=== PATIENT | female | born 1945 | race Caucasian/White ===

== ENCOUNTER 2016-10-03 19:54 | Emergency (ER) | payer MEDICARE, OTHER ==
[~2016-10-03] VITALS: Ht 160 cm; Wt 109.1 kg
[2016-10-03 20:09] VITALS: BP 160/88; PULSE 95; RESP 16; O2SAT 94
--- NOTE | 2016-10-03 21:08 | ED.REPORT ---
HPI-Extremity Problem Upper Date of Service October 03, 2016 ED Provider: Dr. Rowland Pt is a relatively healthy 71 y/o female w/ a hx of emphysema presenting to the ED with family due left shoulder pain secondary to mechanical ground level fall which occurred at 18:30 today. The patient fell in her driveway onto her left shoulder after stubbing her toe. She has had a wet-sounding cough for the past 3 weeks. She has not had to use her regular inhaler more often. Pt denies syncope, other sites of injury, fever, chills, nausea, vomiting, elbow pain, wrist pain, clavicular pain. NPO as of 18:00 today. Nursing Notes Stated Complaint: FELL Chief Complaint: Extremity Trauma Nursing Notes Reviewed: Yes Allergies: Coded Allergies: codeine (Verified Allergy, Severe, 10/03/16) Scheduled Prednisone (PredniSONE) 20 Mg Tablet 20 MG PO DAILY Scheduled PRN Naproxen (Naprosyn) 500 Mg Tablet 500 MG PO BID PRN PRN For Pain oxyCODONE-Acetaminophen 5-325 mg (oxyCODONE-Acetaminophen 5-325 mg) 1 Each Tablet 1-2 TAB PO Q6H PRN PRN For Pain General Time Seen by MD: 21:07 Chief Complaint Shoulder injury left Hx Obtained From: Patient Arrived By: Walk-in Onset Occurred: 1 - 4 hours ago Symptom Duration: Since onset Caused by: Accidental Location: : Shoulder left Quality: Painful Severity: Current: Moderate Severity: Maximum: Moderate Exacerbated by: Range of motion Similar Sx Previous: No Past Medical History Past Medical History Emphysema Past Surgical History None reported Smoking History Former Smoker Ambulatory Status Independent Review of Systems Constitutional: Denies: Chills, Fever Musculoskeletal: Reports: Extremity pain, Extremity swelling, Denies: Back pain, Neck pain Neurologic: Denies: Headache, Lightheaded, Syncope Complete sys rev & neg: except as marked. Respiratory: Reports: Non-productive cough, Denies: Shortness of breath Cardiovascular: Denies: Chest pain, Dyspnea on exertion GI: Denies: Abdominal pain, Diarrhea, Nausea, Vomiting Physical Exam Initial Vital Signs Vital Signs (First) Date Time Temp Pulse Resp B/P Pulse Ox O2 Delivery O2 Flow Rate FiO2 10/03/16 20:09 37.3 95 16 160/88 94 Room Air Initial VS: Reviewed, Vital signs abnormal Head / Eyes: Atraumatic, Normocephalic, PERRL ENT: Mucous membranes moist, Conjunctiva normal, No scleral icterus Cardiovascular: Intact distal pulses Abdomen / GI: Soft, Non-tender Lower Extremities: Vascular intact, Neuro intact, No swelling, No tenderness Skin: Warm, Dry, No cyanosis Neurologic: Alert, Oriented, Nonfocal Psychiatric: Mood/affect normal, Behavior normal, Normal thought content General/Constitutional: Awake, Alert, No acute distress, Cooperative, Not toxic appearing Appearance / Presentation: Positive: Uncomfortable Neck: Atraumatic, Supple, No meningismus, Full range of motion, No swelling, Non-tender, No midline vertebral tend Respiratory / Chest: Atraumatic, Breath sounds NL, Breath sounds = bilat, No respiratory distress, No rales, No rhonchi, No wheezing, No retractions, No stridor, No chest tenderness, No chest wall deformity, No crepitus No clavicular pain Upper Extremity / MS: Neurologic intact, Vascular intact Tender over left proximal humerus, Too tender to check shoulder ROM, No tenderness or deformity of elbow, wrist, or fingers Lower Extremity / Pelvis / MS: Atraumatic, Inspection NL, Full range of motion , Non-tender, No deformity, Neurologic intact, Vascular intact, Pelvis stable, Pelvis non-tender Interpretation & Diagnostics Interpretation & Diagnostics: CT left shoulder w/out contrast: Impression: Comminuted and distracted fracture involving the head and neck of the left humerus. Bony Bankart noted. Transmitted to the ED by Dc Vázquez MD at 23:05 Lab Results Interpretation Result Diagram: 10/03/16 2212 10/03/16 2212 Test 10/03/16 22:12 White Blood Count 12.8th/mm3 (3.8-10.1) Red Blood Count 4.48mil/mm3 (3.90-5.20) Hemoglobin 12.9g/dL (12.0-15.6) Hematocrit 41.9% (35.0-46.0) Mean Corpuscular Volume 93.5fL (81-100) Mean Corpuscular Hemoglobin 28.8pg (27.0-35.0) Mean Corpuscular Hemoglobin Concent 30.8% (32.0-37.0) Red Cell Distribution Width 14.5% (12.3-15.4) Platelet Count 262bil/L (150-400) Neutrophils (%) (Auto) 86.8% (40-74) Lymphocytes (%) (Auto) 7.5% (14-46) Monocytes (%) (Auto) 4.5% (4-12) Eosinophils (%) (Auto) 0.8% (0-5) Basophils (%) (Auto) 0.2% (0-3) Sodium Level 139mEq/L (134-144) Potassium Level 4.8mEq/L (3.5-5.2) Chloride Level 100mEq/L (97-108) Carbon Dioxide Level 27mmol/L (18-29) Blood Urea Nitrogen 25mg/dL (8-27) Creatinine 1.50mg/dL (0.57-1.00) Estimat Glomerular Filtration Rate 49mL/min (>59) Glucose Level 142mg/dL (60-99) Calcium Level 9.7mg/dL (8.5-10.1) Total Bilirubin 0.2mg/dL (0.0-1.2) Aspartate Amino Transf (AST/SGOT) 18U/L (0-50) Alanine Aminotransferase (ALT/SGPT) 15U/L (0-32) Alkaline Phosphatase 97U/L (25-165) Total Protein 7.7g/dL (6.4-8.4) Albumin 4.0g/dL (3.4-5.0) ECG Interpretation Time: 23:14 Interpreted by: ED physician Normal ECG Interpretation: Normal ECG w/ rate of... (94), Normal rate, Normal sinus rhythm, No acute ischemic changes, Normal QRS, Normal axis, Normal intervals, Adequate tracing X-Ray Chest Interpretation Chest Xray Interpretation: Parabronchial cuffing No hyperinflation Consistent with resolving bronchtis View: Portable, 1 view Interpretation / Wet Read by: Wet read ED physician X-Ray Interpretation Xray Interpretation: IMPRESSION: Comminuted fracture of the left humeral head and neck with displacement of the shaft medially 2 there is a thickness of the shaft. There is anterior angulation at the humeral neck fracture line. Dictated by: Deric Gonzales M.D. on 10/03/2016 at 22:05 Approved by: Deric Gonzales M.D. on 10/03/2016 at 22:06 Study Performed: 2 view X-Ray Ordered: Humerus left Interpretation / Wet Read by: Interpret - Radiologist Re-Eval/Medical Decision Med Decision/Clinical Course 71-year-old woman presents after mechanical fall where she landed on her left shoulder. No loss of consciousness no head or neck pain no pelvic or lower extremity pain. Her left arm is neurovascularly intact that she has significant tenderness at the proximal humerus. Incidentally notes that she has had a cough for the past 3 weeks in the setting of COPD but no smoking for the last 3 years. X-rays and CT scan confirmed severely comminuted angled proximal humerus fracture. Care is reviewed with Dr. Simental. Pain has been controlled adequately in the emergency department. She will be sent home with a sling and adequate continued oral pain control. Some attempts to gently manipulate her arm into a less angulated position were made for comfort. She is tolerating the sling nicely. We will need to call orthopedic office for definitive fracture care. COPD exacerbation with continued cough, suggest 5 days of prednisone along with continued inhalers that she has at home. No evidence for pneumonia or infection at this time no antibiotics indicated Labs were done in the emergency room as well as EKG and chest x-ray all in anticipation of surgery. Extremities all available to Dr. Villafana should surgery be required Re-Evaluation/Progress #1: Time of Eval: 22:00 Re-Evaluation/Progress Note: Pt rechecked. Pain improved. Informed pt of wet read of fracture and need for CT. She agrees with plan. Re-Evaluation/Progress #2: Time of Eval: 23:17 Re-Evaluation/Progress Note: Pt rechecked. Discussed imaging findings. A lengthy discussion was had with the patient and family. Informed pt of plan for treatment. Pt understands and agrees with plan for treatment. F/U instructions and RTER warnings given. All questions addressed. Consultation : Referral / Consult Name: Nick Simental MD Consulted With: Orthopedic Call Returned at: 23:15 Title Clerk: Agrees with eval, Agrees with plan Note: Recommends sling and home with pain control. Counseled Regarding: Diagnosis, Lab results, Need for follow-up, When/why to return to ED Discharge & Departure Impression: Primary Impression: Fracture of neck of left humerus Encounter type: initial encounter Fracture type: closed Qualified Code: S42.212A - Unspecified displaced fracture of surgical neck of left humerus, initial encounter for closed fracture Additional Impressions: Fall from ground level COPD exacerbation Fracture of head of left humerus Encounter type: initial encounter Fracture type: closed Qualified Code: S42.202A - Unspecified fracture of upper end of left humerus, initial encounter for closed fracture Disposition: Home Discharge Condition All VS Reviewed: Yes Condition: Stable Patient Instructions: Arm Fracture in Adults (ED), COPD (Chronic Obstructive Pulmonary Disease) (ED) Additional Instructions: The imaging showed a fracture of your upper left arm which may require surgery. The orthopedic surgeon will help you make this decision. Follow-up with the orthopedist tomorrow. Call tomorrow morning to set up an appointment. The referral number can be found below. Remain in the sling until you are seen by the orthopedist. Take Naprosyn each morning and night. Do not take Ibuprofen. Take 1-2 Percocet every 6 hours as needed for severe breakthrough pain. Do not drink alcohol or drive while taking Percocet. Take 1 Prednisone once each day for 5 days to improve your breathing. Take your first 2 Percocet at 3 AM tonight. Set an alarm. Use ice packs. Return to the emergency department for uncontrolled pain, significant numbness or weakness of your hand or fingers, or for other new or worsening symptoms. Referrals: Lula Singh MD (PCP) Nick Simental MD Attestation Portions of this note were transcribed by Naveed Allen. I, Dr. Rowland personally performed the history, physical exam and medical decision-making; I reviewed and confirmed the accuracy of the information in the transcribed note. Signed by Frankie Warner, 10/03/162129 copies to: Lula Singh MD; Nick Simental MD, Shawna L MD October 03, 2016 21:08 NAVEED ALLEN October 03, 2016 21:15
[2016-10-03] MEDS ORDERED: oxyCODONE-Acetamin 5-325 mg Tablet PO ONE (21:15)
[2016-10-03] MEDS ORDERED: predniSONE 20 mg Tablet PO ONE (21:20)
--- NOTE | 2016-10-03 22:08 | DRSVH ---
PROCEDURE: X-RAY LEFT HUMERUS, MINIMUM TWO VIEWS ([id number]) INDICATIONS: fall TECHNIQUE: 2 views of the humerus were acquired. COMPARISON: None. FINDINGS: Bones: There is an acute comminuted fracture of the left humeral neck and head. Prominent fragment in cluding the shaft is displaced medially. There is a thickness of the shaft with some anterior angulat ion. IMPRESSION: Comminuted fracture of the left humeral head and neck with displacement of the shaft medi ally 2 there is a thickness of the shaft. There is anterior angulation at the humeral neck fracture l ine. Dictated by: Deric Gonzales M.D. on 10/03/2016 at 22:05 Approved by: Deric Gonzales M.D. on 10/03/2016 at 22:06
[2016-10-03] MEDS ORDERED: HYDROmorphone 0.5 mg/0.5 mL iSecure Syringe IVPUSH PRN (22:15)
[2016-10-03] MEDS ORDERED: HYDROmorphone 1 mg/mL Inj IVPUSH ONE (22:15)
[2016-10-03 22:28] LABS: BASOPHILS % (AUTO) 0.2 % (0-3); EOSINOPHILS % (AUTO) 0.8 % (0-5); MONOCYTES % (AUTO) 4.5 % (4-12); Mean Corpuscular Hemoglobin 28.8 pg (27.0-35.0); Mean Corpuscular Volume 93.5 fL (81-100); NEUTROPHILS % (AUTO) 86.8 % (40-74); Platelet Count 262 bil/L (150-400)
[2016-10-03] MEDS ORDERED: PRE20 PO (23:35)
[2016-10-03] MEDS ORDERED: _oxyCODONE/APAP 5-325 mg Tablet PO PRN (23:35)
[2016-10-03] MEDS ORDERED: NAPR500T PO (23:35)
[2016-10-03] MEDS ORDERED: OXYC1TAB24 PO (23:35)
[2016-10-04 00:06] VITALS: BP 138/77; PULSE 98; RESP 18; O2SAT 94
--- NOTE | 2016-10-04 08:29 | DRSVH ---
PROCEDURE: CT SHOULDER LEFT W/O CONTRAST ([id number]) INDICATIONS: fracture TECHNIQUE: Noncontrast 1-1.5 mm thick sections acquired from the acromioclavicular joint to the inferior scapula , with coronal and sagittal reformatting. COMPARISON: [facility], CR, XR HUMERUS 2VW LT, 10/03/2016, 21:45. FINDINGS: Image quality: Excellent. Bones: There is a comminuted fracture of the left humeral head and neck. There is medial displacemen t of the femoral shaft component by approximately 1.3 cm and anterior displacement by approximately 0 .7 cm with mild impaction. Mild lateral angulation is also demonstrated by approximately 30 as well as mild posterior angulation of approximately 25. There is lateral displacement of the great tuber osity component by up to approximately 1 cm. 3 small linear cortical fracture fragments likely origi nating from the greater tuberosity are also impacted centrally in the humeral head by approximately 1 cm. The findings are compatible with a Neer 3 part fracture. The fractures involve the articular s urface of the humeral head inferiorly. There is also a mildly comminuted fracture of the inferior gl enoid. Soft tissues: There is mild periarticular soft tissue edema. Moderate centrilobular emphysematous ch anges are demonstrated within the visualized lungs. IMPRESSION: 1. Comminuted fracture of the left humeral head and neck consistent with a Neer 3 part fracture as d escribed. These include impacted greater tuberosity fragments as well as fracture along the articula r surface of the humeral head inferiorly. 2. Mildly comminuted fracture of the inferior glenoid. Dictated by: Kojo Rodriguez M.D. on 10/04/2016 at 8:17 Approved by: Kojo Rodriguez M.D. on 10/04/2016 at 8:27
--- NOTE | 2016-10-04 08:42 | DRSVH ---
PROCEDURE: X-RAY CHEST ONE VIEW, PORTABLE ([id number]) INDICATIONS: PRE-OP TECHNIQUE: One view of the chest was acquired. COMPARISON: [facility], CR, XR HUMERUS 2VW LT, 10/03/2016, 21:45. FINDINGS: Surgical changes and devices: None. Lungs and pleura: No pleural effusions or pneumothorax. Lungs are clear. Mediastinum: Mediastinal contours appear normal. Heart size is normal. Bones and chest wall: No suspicious bony lesions. Overlying soft tissues appear unremarkable. Parti ally visualized proximal left humerus fracture IMPRESSION: No acute disease Dictated by: Rodriguez Barajas M.D. on 10/04/2016 at 8:38 Approved by: Rodriguez Barajas M.D. on 10/04/2016 at 8:39
[2016-10-09] MEDS ORDERED: BUPR150T8 PO (10:00)
[2016-10-09] MEDS ORDERED: MULT-1018 PO (10:00)
[2016-10-09] MEDS ORDERED: CHOL200025 PO (10:00)
[2016-10-09] MEDS ORDERED: IPRA4AER IH (10:00)
[2016-10-09] MEDS ORDERED: ALPR0.254 PO (10:00)
== END 2016-10-03 23:57 | disposition home or self-care (01) ==
LOC: SED 19:54
DX: S42.212A Unspecified displaced fracture of surgical neck of left humerus, initial encounter for closed fracture (principal); S42.292A Other displaced fracture of upper end of left humerus, initial encounter for closed fracture; S42.142A Displaced fracture of glenoid cavity of scapula, left shoulder, initial encounter for closed fracture; W18.39XA Other fall on same level, initial encounter; Y93.89 Activity, other specified; Y92.89 Other specified places as the place of occurrence of the external cause; Y99.8 Other external cause status; J44.1 Chronic obstructive pulmonary disease with (acute) exacerbation; Z87.891 Personal history of nicotine dependence; Z88.5 Allergy status to narcotic agent
CPT/HCPCS: 36415; 71010; 73060; 73200; 80053; 85025; 93005; 96372; 96374; 99285; J1170; J1885

== ENCOUNTER 2016-10-10 12:22 | Inpatient (IN) | payer MEDICARE ==
--- NOTE | 2016-10-09 12:40 | PCM.ANEPRE ---
Anesthesia Pre-Op Review Reason for Review: elevated bmi, hx of emphysema office request Anesthesia Recommendations: Proceed with Procedure (Morbidly Obese with severe COPD, FEV1 of 0.84, FEV1/FVC 51 for total shoulder. Discussed with Dr Simental advises that patient is unlikely to receive shoulder block and increased likelyhood of post op intubation. ) Additional Comments Proceed with Procedure (Morbidly Obese with severe COPD, FEV1 of 0.84, FEV1/FVC 51 for total shoulder. Discussed with Dr Simental advises that patient is unlikely to receive shoulder block and increased likelyhood of post op intubation. Dr Simental states he will be efficient and use judicious lock for field block. patient should be advised on increased possiblity of post op intubation. Yonathan Shah MD Oct 09, 2016 12:40
[~2016-10-10] VITALS: Ht 165.1 cm; Wt 112.0 kg
[2016-10-10] MEDS: CeFAZolin Inj 2 GM in IV Premix 1 EACH IV SCH ×2 (06:00→13:57)
[2016-10-10] MEDS: Acetaminophen IV 1,000 MG in IV Premix 1 EACH IV SCH ×2 (06:00→13:35)
[~2016-10-10 12:22] MED LIST: ALPR0.254 PO; BUPR150T8 PO; Bupivacaine Liposome 1.3% 20 mL Inj INFILTRATE SCH; CHOL200025 PO; Gentamicin Inj 160 MG in Syringe 1 EACH IV ONE; IPRA4AER IH; Lactated Ringer's 1,000 ML IV SCH; MULT-1018 PO; NAPR500T PO; OXYC1TAB24 PO
[2016-10-10 12:45] VITALS: BP 158/60; PULSE 96; RESP 24; O2SAT 92
[2016-10-10] MEDS ORDERED: Lactated Ringer's 1,000 ML IV ONE (12:45)
[2016-10-10] MEDS ORDERED: MetoCLOpramide 5 mg/mL 2 mL Inj ONE (13:34)
[2016-10-10] MEDS ORDERED: HYDROmorphone 2 mg/mL Inj ONE (13:34)
[2016-10-10] MEDS ORDERED: Rocuronium 10 mg/mL 5 mL Inj ONE (13:34)
[2016-10-10] MEDS ORDERED: Phenylephrine/NS 100 mCg/mL 10 mL Syringe IVPUSH ONE (13:34)
[2016-10-10] MEDS ORDERED: Propofol 10,000 mCg/mL 20 mL Inj ONE (13:34)
[2016-10-10] MEDS ORDERED: fentaNYL-PF 50 mCg/mL 2 mL Inj ONE (13:34)
[2016-10-10] MEDS ORDERED: Lactated Ringer's 1,000 ML IV SCH ×2 (13:39→14:47)
[2016-10-10] MEDS ORDERED: Magnesium Hydroxide 10 mL Oral Concentration PO PRN (13:40)
[2016-10-10] MEDS ORDERED: diphenhydrAMINE 25 mg Capsule PO PRN (13:40)
[2016-10-10] MEDS ORDERED: Polyethylene Glycol (PEG) 17 Gm Powder PO PRN ×2 (13:40→17:35)
--- NOTE | 2016-10-10 14:14 | PCM.ORTHOP ---
Orthopedic Operative Report Date of Service: Oct 10, 2016 Pre Operative Diagnosis Left shoulder proximal humerus fracture, glenoid fracture Post Operative Diagnosis Same Procedure Left reverse total shoulder arthroplasty, open biceps tenodesis Surgeon Surgeon: Nick Simental MD Assistants: Alverto Chavis Indication for Procedure Left proximal humerus fracture, glenoid fracture Findings per dictation Details of Procedure [employer] reverse fracture system: CaP coated size 8 mm humeral stem, 36 neutral suture cup, small baseplate, small 36+3 humeral insert, 36mm Glenosphere, 6.5X20mm central screw, 4.75 x 36 mm locking screws, 4.75 x 36mm locking screw Anesthesia: general ETA Complications: none Estimated Blood Loss: 200 mL Findings: four part comminuted proximal humerus, head split in multiple comminuted pieces, inferior glenoid fracture Specimens: None Patient Status: Patient was extubated and taken to recovery room in stable condition. Indications: Myrna Chatman is a 71 year old right hand dominant s/p fall sustaining a comminuted left proximal humerus and glenoid fracture several days ago. The patient was offered conservative treatments versus surgical intervention given the severity of the injury and the patient opted for surgery. A clear explanation was given to the patient regarding the condition present, and the available conservative and surgical options. It was emphasized that the risks and benefits of surgery include but are not limited to infection , wound healing problems, damage to adjacent structures such as nerves, blood vessels and tendons, termite control service representative disability and pain, arthritis, hypersensitivity , deep vein thrombosis, pulmonary embolism, broken hardware, failure of surgery , need for further procedures at time of surgery or later, cast related problems , loss of limb or life. The patient was given an explanation and the patient voiced understanding of what to expect after the procedure or surgery, the limitations in activities of daily living, the likely duration for post operative recovery and the instructions that are to be followed. At the end the patient was invited to seek clarification or ask further questions but there were none. The patient voiced understanding of the entire consultation. Description of Procedure: Patient was taken to operating room and transferred to operating table in supine position. Time out was performed with both anesthesia and orthopaedics faculty present to confirm details of case to be performed. After time out performed, patient placed under general anesthesia and endotracheal tube secured into place. Once endotracheal tube secured, the patient was placed into the modified beach-chair position at about 40 degrees of flexion. Patient position was again checked to ensure all bony prominences adequately padded. The[default value] arm was prepped and draped in the usual sterile fashion to the level of the neck. A standard deltopectoral incision was made beginning immediately above the coracoid process and extending distally and laterally. The deltoid muscle was split through the interval being carefully not to release any deltoid along the clavicle or humerus. The proximal one-third of the pectoralis major muscle was incised off the humerus for better exposure. The supraspinatus and infraspinatus muscles were intact and still attached to the fractured greater tuberosity. The subscapularis was intact and also still attached to the fractured lesser tuberosity. It was incised through the tendinous portion just medial to the lesser tuberosity and tagged with 2-0 Fiberwire. The arm was externally rotated to expose the humeral head while the anterior humeral circumflex vessels ("3 sisters") were identified, ligated and then cut protecting the axillary nerve throughout inferior and medial to the vessels. The long head of the biceps was identified along the bicipital groove, incised at its origin and tagged for later tenodesis to the pectoralis major A pilot plant supervisor hole was then made with a 4 mm drill through the humeral head along the axis of the humeral shaft just lateral to the head's articular surface and just posterior to the bicipital groove. The 6 mm trochar pointed reamer was then inserted with continued circumferential reaming in 1 mm increments until light cortical contact was achieved with the 14mm reamer. The intramedullary resection guide was assembled and the version control sabiha was placed to allow for 30 degrees retroversion. We started broaching with the 8 mm broach and ended with the 8 mm broach which solidly fit in the canal and fully seated on the humerus. The broach cover was then used to protect the humerus while attention was turned to the glenoid. Any remaining labrum was removed from the glenoid along with surrounding osteophytes. The glenoid sizer was centered on the glenoid and a 3.2 mm Steinmann pin was inserted with a 10 degree inferior tilt with solid bone purchase. The glenoid was then reamed with the cannulated base plate reamer over the top of the Steinmann pin until a small bone shelf was evident circumferentially. The cannulated trial glenoid baseplate was placed and fully seated. The glenoid baseplate implant was impacted and fully seated. The 6.5 mm central screw was then inserted following removal of the Steinmann with good compression. The surrounding peripheral screws were then drilled with a 2.7 mm drill through the threaded locking guides and then placed. The glenosphere 36 mm trial was placed with good fit. The glenosphere implant was then tamped in place with appropriate offset. The standard humeral tray/bearing were placed and a trial reduction was performed. The patient achieved 80 degrees of external /internal rotation, 110 degrees of abduction, 45 degrees extension and 120 degrees of forward flexion with complete stability. The trail components were removed and the wound was copiously irrigated with normal saline with bacitracin. The mini stem was inserted followed by impaction of the humeral tray /bearing. The implant was reduced and once again range of motion was found to be 80 degrees of external/internal rotation, 110 degrees of abduction, 45 degrees extension and 120 degrees of forward flexion with complete stability. The wound was again irrigated. The humeral head was morselized and placed under the lugo of humeral head to improve bone stock and promote tuberosity healing. The tuberosities were repaired with #5 and #2 Fiberwire through previously made bone tunnels. The long head of biceps was tenodesed to the pectoralis major. The deltoid interval was closed with 0 vicryl followed by 2-0 vicryl subcutaneous closure and then monocryl stitches for the skin. Transexamic acid was given preop and prior to closure and a local anesthetic cocktail into the skin. Gentamicin was injected into the joint. Sterile dressings were applied along with a shoulder immobilizer and abduction pillow. The patient was then awoken from anesthesia and extubated, his neurovascular status was intact when checked in PACU. Pt tolerated procedure well and there was no complications. Nonweightbearing to affected upper extremity. Please leave sling on at all times. You may remove sling 3 times a day to move the elbow wrist and fingers. Do not move your shoulder. PROM only, IR to body, ER to 0 degrees, FF to 90 degrees, ABD to 0 degrees. Keep your arm at neutral, NO external rotation of the arm, no resisted IR of the arm. Please keep the affected extremity elevated when possible. You may use ice and/or heat as needed for comfort. Follow-up in 2 weeks with me with 2-view xrays and for suture removal and Steri -Strip application. Follow-up with me at 6 weeks. You will have pain medications , medication for constipation and aspirin 81 qdaily X 2 weeks. Grafts, Implants: Implants-See Implant Record Complications There were no periprocedural complications identified. Condition Stable Anesthetic Administered: GA Catheters: None Output, Estimated Blood Loss: 50 Blood Admin during surgery: No Surgical Cast or Splint: Shoulder Immobilizer Surgical Specimen Removed: No Specimen sent to Pathology: No copies to: Nick Simental MD, Christopher L MD Oct 10, 2016 14:14 Nick Simental MD Oct 10, 2016 14:14
[2016-10-10] MEDS ORDERED: 0.9% Sodium Chloride 100 ML ONE ×2 (14:28→14:29)
[2016-10-10] MEDS ORDERED: Tranexamic Acid 100 mg/mL 10 mL Inj ONE ×2 (14:28→14:29)
[2016-10-10] MEDS ORDERED: Lactated Ringer's 500 ML IV PRN (14:47)
[2016-10-10] MEDS ORDERED: Atropine 0.4 mg/mL Inj IVPUSH PRN (14:50)
[2016-10-10] MEDS ORDERED: fentaNYL-PF 50 mCg/mL 2 mL Inj IVPUSH PRN ×2 (14:50→17:20)
[2016-10-10] MEDS ORDERED: Phenylephrine 10,000 mCg/mL Inj IVPUSH PRN (14:50)
[2016-10-10] MEDS ORDERED: HYDROmorphone 1 mg/mL Inj IVPUSH PRN (14:50)
[2016-10-10] MEDS ORDERED: Labetalol 5 mg/mL 4 mL Inj IV PRN (14:50)
[2016-10-10] MEDS ORDERED: EPHEDrine Sulfate 50 mg/mL Inj IVPUSH PRN (14:50)
[2016-10-10] MEDS ORDERED: MetoCLOpramide 5 mg/mL 2 mL Inj IVPUSH PRN (14:50)
[2016-10-10] MEDS ORDERED: Ondansetron 2 mg/mL 2 mL Inj IVPUSH PRN ×2 (14:50→17:35)
[2016-10-10] MEDS ORDERED: Bupivacaine Liposome 1.3% 20 mL Inj INFILTRATE ONE (14:54)
[2016-10-10] MEDS ORDERED: Gentamicin 40 mg/mL 2 mL Inj INJ ONE (14:55)
--- NOTE | 2016-10-10 14:55 | PCM.HPANE ---
Patient Data Surgeon Admitting Provider: Attending Provider:Nick Simental MD Primary Care Physician:Lula Singh MD Other Provider:Aleah Israel Anesthesia Reason for Visit Left Proximal Humerus Fracture Ht/WT & BMI Height (Feet): 5 Height (Inches): 3 Weight (Kilograms): 110.77 Body Mass Index 43.00 Allergies Coded Allergies: codeine (Verified Allergy, Severe, nausea, 10/10/16) Past Anesthesia History Anesthesia History: Denies:: Abnormal Airway, Anesthesia Reactions, Difficult Intubation, Fam Anesthesia Reaction, Fam Malignant Hypertherm, Malignant Hyperthermia Diabetes History Hx Diabetes?: No (Hgb A1c 6.0 on 11/24/15) MRSA MRSA: No Medications Hypertension Medication: No Home Meds Incl Beta Amy: No Active Scripts oxyCODONE-Acetaminophen 5-325 mg 1 Each Tablet1-2 Tab PO Q6H PRN For Pain #30 TABLET Ref 0 Prov:Hazel Rowland MD 10/03/16 Naproxen (Naprosyn)500 Mg [id number] Mg PO BID PRN For Pain #60 TABLET Ref 0 Prov:Hazel Rowland MD 10/03/16 Reported Medications Bupropion ER (Wellbutrin SR)150 Mg Tablet.er150 Mg PO BID Ref 0 10/09/16 Cholecalciferol (Vitamin D3) (Vitamin D3)2,000 Unit Tablet2,000 Unit PO DAILY 10/09/16 Multivitamin (Multi Vitamin Daily)1 Each Tablet1 Each PO DAILY 30 Days Ref 0 10/09/16 Albuterol/Ipratropium (Combivent Respimat Inhal [place])120 Spr/4 Gm Inhaler1 Puff IH QID #1 INH Ref 0 10/09/16 Discontinued Reported Medications Alprazolam 0.25 Mg Tablet0.25 Mg PO DAILY PRN For Anxiety Ref 0 10/09/16 Discontinued Scripts Prednisone (PredniSONE)20 Mg [id number] Mg PO DAILY #5 TABLET Ref 0 Prov:Hazel Rowland MD 10/03/16 History History of ENT Problems?: Yes HEENT History: Positive for:: Sinus Problem (current cough with cold, small amt productive cough) Denies:: Abnormal Airway Cataracts Difficult Intubation Dysphagia Glaucoma Hearing Problem TMJ Denture Type: None Teeth Condition: Within Normal Limits Other HEENT Pertinent History: remote hx of corneal tear - last 10 years Hx of Heart Problems?: Yes Cardiovascular History: Denies:: AICD Abdominal Aortic Aneurism Atrial Fibrillation Cardiac Surgery Chest Pain Congestive Heart Failure Coronary Artery Disease Edema Heart Murmur Hypertension Irregular Heartbeat Pacemaker Peripheral Vascular Rheumatic Fever Thrombophlebitis Valvular Heart Disease Hx of Respiratory Problem?: Yes Respiratory History: Positive for:: COPD Cough Dyspnea Emphysema Use of Inhalers / NEBS Denies:: Asthma Chest Surgery Hemoptysis Oxygen Administration Pneumonia Pulmonary Embolism Tuberculosis Use of C-PAP Machine Hx Neurologic Problems?: No Neurological History: Denies:: Alzheimer's Disease CVA Dementia Dizziness Headaches Multiple Sclerosis Parkinson's Disease Peripheral Neuropathy Seizures TIA Hx of GI Problems?: Yes Gastrointestinal History: Denies:: Cirrhosis Diverticulitis Gall Bladder Disease Gastroesphageal Reflux Gastrointestinal Bleeding Heartburn Hepatitis Hiatal Hernia Liver Disease Rectal Bleeding Hx of Problems?: No Genitourinary History: Denies:: HX of Hemodialysis Kidney Stones Urinary Tract Infection HX of Peritoneal Dialysis: No Female Hx: Denies:: Currently Endometriosis Pelvic Inflammatory Problems with Breasts? Skin History: Positive for:: History Skin Disorders? (surface scrape from fall - elbow, leg ) Denies:: Pressure Ulcers Hx Musculoskeletal Problems?: Yes Musculoskeletal History: Positive for:: Musculoskeletal Trauma (left shoulder current admission problem) Denies:: Back Injury Degenerative Joint Fibromyalgia Joint Replacement Myasthenia Gravis Osteoarthritis Rheumatoid Arthritis Systemic Lupus Hx of Psycho/Social Problems?: Yes Psycho Social History: Positive for:: Anxiety (panic disorder) Denies:: Bipolar Disorder Hx Depression Suicide Attempt Hx Surgeries?: Yes (hand surgery in office, tonsils as child) Hx Any Other Health Problems?: Yes Other History: Denies:: Cancer Thyroid Disease (past hx of thyroiditis- 40+ years ago) History Blood Transfusions: Positive for:: Accept Blood Products? Denies:: Blood Transfusions Hx Diabetes: No (Hgb A1c 6.0 on 11/24/15) Hx Alcohol Use: YesAlcoholic Drinks Per Day: holidays only- rareHx Substance Use: No Smoking Status: Former Smoker Have You Smoked inLast 12 mo: No (quit tobacco 3 years ago- currently vapes rarely) Stop/Bang S-Snoring: Do You Snore Loudly: No T-Tired: feel tired, fatigued: No O-Obsered: Observed not breath: No P-Blood Pressure: treated: No B- Body Mass Index > 35 kg/m2: Yes A- Age over 50: Yes N- Neck Large Circumference: No G- Gender Male: No PATRICIO Total Score: 2 Risk Assessment Category Category 1A: Patient has history of documented sleep apnea, and HAS NOT received any narcotic, sedative or anesthesia administration during this stay. Category 1B: Patient has history of documented sleep apnea, and HAS received any narcotic , sedative or anesthesia administration during this stay Category 2: Patient has SUSPECTED Obstructive Sleep Apnea, and HAS received any narcotic , sedative or anesthesia administration during this stay. Category 3: Patient has SUSPECTED Obstructive Sleep Apnea and HAS NOT received narcotic, sedative or anesthesia administration during this stay. Category 4: Outpatient in Procedural Areas with known sleep apnea or who screen positive for High Risk via the STOP/BANG questionnaire. Exam Exam General Appearance: Alert, Oriented X3, Cooperative, No Acute Distress HEENT/AIRWAY: MP 2, Neck Movement (large neck circumference), Mouth Opening (3 FBMO) Lungs: Diminished, Coarse Heart: Exam Unremarkable, Regular Rate/Rhythm, No Murmurs/Rubs/Gallops Meds/Labs/Diagnostics Admission Meds Current Medications Lactated Ringer's (Lr) 1,000 ml @ ud STK-MED ONCE IV Last administered on t 12:45; Start 10/10/16 at 12:45; Stop 10/10/16 at 13:12; Status DC Plan Impression Patient chart reviewed, patient interviewed and anesthestic plan with risks, benefits, and alternatives discussed, and informed consent obtained. NPO per Anesth. Guidelines: Yes ASA Physical Status: ASA3 Severe Disease (COPD) Anesthetic Support Modalities: [place] Scope Anesthetic Plan: GA Bene/Risks/Altern/Consents: Yes HP Complete Prior to Induction: Yes Other SOB with exertion. I spent a long time preoperatively with the patient and her family discussing anesthesia risks. The primary risk has to do with her COPD and pulmonary status. She gets SOB with exertion and has a low room air saturation. I reported that there was a high chance Ms. Chatman would need to remain intubation postoperatively and go to the ICU on a ventilator. She also has a significant risks of developing pneumonia/atelectasis. This was in addition to all of the other standard GETA risks mentioned on the consent. All questions were answered and Ms. Chatman and her family still wanted to proceed with surgery despite the risks. She is also aware that this is a painful surgery and despite good pain medication management she will still likely have significant postoperative pain. Consent signed. Jayson Ingram MD Oct 10, 2016 13:18
[2016-10-10 17:10] VITALS: BP 112/92; O2SAT 99
[2016-10-10] MEDS ORDERED: fentaNYL 2,500 mCg/250 mL 2,500 MCG in IV Premix 1 EACH IV PRN (17:16)
[2016-10-10] MEDS ORDERED: Propofol Inj 1,000,000 MCG in IV Premix 1 EACH IV SCH (17:16)
[2016-10-10] MEDS ORDERED: Propofol 10,000 mCg/mL 100 mL Inj ONE (17:21)
--- NOTE | 2016-10-10 17:25 | PCM.ANEP1 ---
Post Anesthesia PACU Phase 1 Assessment Vital Signs Vital Signs Date Time Temp Pulse Resp B/P Pulse Ox O2 Delivery O2 Flow Rate FiO2 10/10/16 12:45 36.4 96 24 158/60 92 Room Air Anesthetic Administered: GA Level of Alertness: Drowsy, not talking [place]'s with Equal Strength: Yes Pain: No Nausea or Vomiting: No CV Function & Hydration Stable: No Airway Device: Endotrachial Tube Oxygen Delivery: Mechanical Ventilator Lungs: Diminished, Coarse Dermatome Level: Full Sensation PACU Phase 2 Assessment Complications: No Follow up Care: Yes Patient Instructions Provided: N/A Jayson Ingram MD Oct 10, 2016 17:25
[2016-10-10] MEDS ORDERED: Albuterol 2.5 mg/3 mL Inhalation Solution NEB PRN (17:30)
[2016-10-10] MEDS ORDERED: cefTRIAXone Inj 1,000 MG in Dextrose 5% Minibag Plus 50 ML IV SCH (17:30)
[2016-10-10] MEDS: Lactated Ringer's 1,000 ML IV SCH ×2 (17:34→21:14)
[2016-10-10] MEDS ORDERED: Senna-Docusate 8.6-50 mg Tablet PO PRN (17:35)
[2016-10-10] MEDS ORDERED: Alum-Mag Hydrox-Simeth 30 mL Suspension PO PRN (17:35)
[2016-10-10 17:45] VITALS: BP 133/61; PULSE 108; RESP 18; O2SAT 96
--- NOTE | 2016-10-10 18:45 | NUR ---
to CCU 2015 direct from O.R. Temp Ax 37.0/HR 106/Bp 133/61. Pt intubated/awake/thrashing head about/trying to sit up in bed. Peripheral rt thumb IV not infusing on arrival. No street; bed saturated with urine underneath pt. Sedation started IVP Dilaudid 1mg-> IV Propofol gtt, Fentanyl gtt to be started beto. Second PIV started per IVT. Several attempts at Labs; ongoing. Dr. Miller Restaurant Kitchen Manager notified of pt arrival by Anesth; orders pending. Street cath placed. minimal UOP->MD notified. Orders for IVF LR @ 75/hr. UA sent. Sputum specimen sent. Labs sent. Notified by Rubi RN that pt's admit & med rec completed per Day Surgery.
--- NOTE | 2016-10-10 18:46 | ABG ---
DateTimeAnalyzed 18:40:00 -_ pH ____7.314 - 7.350 7.450 pCO2 ___57.0__ -mmHg 35.0 45.0 pO2 148 -mmHg 69.0 116 HCO3- ___28.1__ -mmol/L 22.0 26.0 ABE ____1.6__ -mmol/L -2.0 2.0 tHb ___10.6__ -g/dL O2Hb ___96.3__ -% COHb ____1.2__ -% MetHb ____1.3__ -% sO2 ___98.8__ -% FIO2 ___50.0__ -% PRVC 12 - PEEP ____5.0__ -cmH2O Vt __500.0__ -L Drawn By gj - Date/Time Notified____ 18:46:00 -_ Spontaneous_RR ___12.0__ -b/min Oxygen Device 1 VENTILATOR - Notified By gj - Notified Whom ___DR. MONTOYA - B 749 -mmHg tO2 ___14.6__ -Vol% Cheng test _Positive -
[2016-10-10] MEDS ORDERED: Ketorolac 15 mg/mL Inj IVPUSH PRN (19:00)
--- NOTE | 2016-10-10 19:13 | DRSVH ---
PROCEDURE: X-RAY CHEST ONE VIEW, PORTABLE ([id number]) INDICATIONS: Post intubation to verify ETT placement TECHNIQUE: One view of the chest was acquired. COMPARISON: None. FINDINGS: Surgical changes and devices: ET tube is approximately 4.9 cm superior to the rocio. NG tube cross es GE junction. Lungs and pleura: No pleural effusions or pneumothorax. Lungs are clear. Mediastinum: Mediastinal contours appear normal. Heart size is normal. Bones and chest wall: No suspicious bony lesions. Overlying soft tissues appear unremarkable. IMPRESSION: ET tube 4.9 cm superior to the rocio. Dictated by: Edie Campbell MD, PhD on 10/10/2016 at 19:10 Approved by: Edie Campbell MD, PhD on 10/10/2016 at 19:11
--- NOTE | 2016-10-10 19:13 | DRSVH ---
PROCEDURE: X-RAY LEFT SHOULDER, MINIMUM TWO VIEWS ([id number]) INDICATIONS: POST OPERATIVE TECHNIQUE: 2 views of the shoulder were acquired. COMPARISON: None. FINDINGS: Bones: Postsurgical changes compatible with left shoulder arthroplasty noted.. Soft tissues: No suspicious soft tissue calcifications. IMPRESSION: Status post left shoulder arthroplasty. Dictated by: Edie Campbell MD, PhD on 10/10/2016 at 19:11 Approved by: Edie Campbell MD, PhD on 10/10/2016 at 19:12
--- NOTE | 2016-10-10 19:35 | NUR ---
Dr. Simental notified of pt's low UOP Plan per Dr. Simental is to request night Hospitalist consult. Pager number provided.
--- NOTE | 2016-10-10 19:51 | NUR ---
Sedation reduced per MD; PST->extubation by [address] Miller managing @ bedside. Family with pt/updated frequently. Bedside & verbal report to shift stacker RN.
--- NOTE | 2016-10-10 19:53 | PCM.PNMED ---
Subjective Date of Service Oct 10, 2016 Subjective 71 yo with COPD and Lt humeral neck fx after ground level fall was admitted to CCU on ventilation s/p Lt shoulder total arthroplasty. SEE FULL DICTATION FOR DETAILS She has tolerated gradual Pressure support wean on CPAP/PSV mode and has now been extubated @ 1945 hours.. Alert and comfortable. Denies pain, nausea, dyspnea. Good voice quality. SpO2 96% on 3 L NC O2. Lungs Decreased breath sounds with scattered crackles, NO wheezes IMP Post-op respiratory failure, resolved. Now stable on low flow nasal cannula oxygen COPD with acute exacerbation REC Steroids, Ceftriaxone, Duoneb Sputum for culture Pain control with bolus dilaudid ICU prophylaxis Mobilize Further care by admitting surgeon and hospitalist service Exam Vital Signs Vital Sign - Last Date Time Temp Pulse Resp B/P Pulse Ox O2 Delivery O2 Flow Rate FiO2 10/10/16 17:25 Mechanical Ventilator 10/10/16 17:10 94 112/92 99 50 10/10/16 12:45 36.4 24 Lab and Diagnostics Result Diagram: 10/10/16 1850 Pa Miller MD Oct 10, 2016 19:53
[2016-10-10 19:55] LABS: APPEARANCE,URINE SLIGHTLY CLOUDY (CLEAR,HAZY); COLOR,URINE YELLOW (YELLOW); OCCULT BLOOD,URINE NEGATIVE (NEGATIVE); UROBILINOGEN,URINE NORMAL (NORMAL)
--- NOTE | 2016-10-10 20:16 | PCM.HPMED ---
Subjective Date of Service Oct 10, 2016 Primary Provider: Admitting Physician: Nick Simental MD Primary Care Physician: Lula Singh MD Attending Physician: Nick Simental MD Chief Complaint: s/p total shoulder, arrival intubated post operation, consulted by orthoDr. Simental History of Present Illness: 71yoF with past history of tobacco dependence and undiagnosed COPD admitted for left total shoulder arthroplasty with subsequent admission to the CCU d/t concerns of respiratory status following procedure. Family is at bedside and assists with history. Patient states that last week she was in her driveway exiting her golf cart with her daughter. Her dog took off running up the highway and her daughter accidentally hit the gas pedal reaching for the dog which released the golf cart brakes and the cart began to roll. Mrs. Chatman reached for the cart and fell backwards down the steep driveway and began to roll down. She was brought into the ER and was found to have a left humerus fracture. At this time she was also given a prednisone burst due to concern for COPD exacerbation. 10/10 she was brought into the hospital for a left total arthroplasty however following procedure she was brought to the CCU intubated. Anesthesia had concerns about her respiratory status given her history of COPD and preferred to have her remain intubated overnight. Pulmonary/critical care physician was available upon patient's arrival to the CCU and patient was successfully extubated at this time. Review of Systems: Complete review of systems obtained. Positive as per HPI otherwise negative Allergies Coded Allergies: codeine (Verified Allergy, Severe, nausea, 10/10/16) Home Medications Alprazolam ASA Ipratropium Melatonin Multivitamin Vitamin D3 Wellbutrin PMH Osteopenia Screening for colon cancer HLD Impaired fasting glucose Abdominal pain Anxiety state Tobacco use Surgical History Tendon release [place] Teeth Extraction Tonsillectomy Family History Father: CHF, history of malaria Mother: " of old age" Social History Hx Alcohol Use: Yes Alcoholic Drinks Per Day: holidays only- rare Hx Substance Use: No Hx Tobacco Use: No Smoking Status: Former Smoker (2ppd "forever", quit 2 years ago still vapes but without tobacco) Living Arrangement: with Family Exam Vital Signs Vital Sign - Last Date Time Temp Pulse Resp B/P Pulse Ox O2 Delivery O2 Flow Rate FiO2 10/10/16 17:45 37.0 108 18 133/61 96 Mechanical Ventilator 40 Exam General: Alert, Oriented X3, Cooperative, No acute Distress Eyes: PERRLA, Scleral Anicteric Mouth: Mouth Normal, Mucous Membranes Moist/[place] Neck: Supple, no Thyromegaly, trachea central. Chest & Lungs: Clear to auscultation & percussion, No adventitious breath sounds, no crackles, no wheeze, anterior exam, poor respiratory effort Cardiovascular: Normal S1, Normal S2, No Murmurs/Rubs/Gallops, tachy/ reg Rhythm Pulses: Radial (present and equal), Dorsalis Pedi (present and equal) GI: Soft, Non-tender, Non-distended, Normoactive bowel tones. Musculoskeletal: left arm in sling, dressings CDI Extremities: 1-2 + pitting edema bilateral, no cyanosis, no clubbing. Skin: No rashes. Warm and dry, no erythematous areas Neurological: Grossly neurologically intact, Normal Speech, Sensation Intact Lymphatic: Lymph nodes Cervical and Axillary not palpable Lab and Diagnostics Result Diagram: 10/10/16 1850 X-Rays, CTs and MRIs Patient Name: KIMBERLY CHATMAN MR#: [id number] Location: CCU Ordering Phys: Alverto Chavis PA-C Date of Service: 10/10/16 1339 PROCEDURE: X-RAY LEFT SHOULDER, MINIMUM TWO VIEWS ([id number]) INDICATIONS: POST OPERATIVE TECHNIQUE: 2 views of the shoulder were acquired. COMPARISON: None. FINDINGS: Bones: Postsurgical changes compatible with left shoulder arthroplasty noted.. Soft tissues: No suspicious soft tissue calcifications. IMPRESSION: Status post left shoulder arthroplasty. Dictated by: Edie Campbell MD, PhD on 10/10/2016 at 19:11 Approved by: Edie Campbell MD, PhD on 10/10/2016 at 19:12 Patient Name: KIMBERLY CHATMAN MR#: [id number] Location: CCU Ordering Phys: Pa Miller MD Date of Service: 10/10/16 1716 PROCEDURE: X-RAY CHEST ONE VIEW, PORTABLE ([id number]) INDICATIONS: Post intubation to verify ETT placement TECHNIQUE: One view of the chest was acquired. COMPARISON: None. FINDINGS: Surgical changes and devices: ET tube is approximately 4.9 cm superior to the rocio. NG tube crosses GE junction. Lungs and pleura: No pleural effusions or pneumothorax. Lungs are clear. Mediastinum: Mediastinal contours appear normal. Heart size is normal. Bones and chest wall: No suspicious bony lesions. Overlying soft tissues appear unremarkable. IMPRESSION: ET tube 4.9 cm superior to the rocio. Dictated by: Edie Campbell MD, PhD on 10/10/2016 at 19:10 Approved by: Edie Campbell MD, PhD on 10/10/2016 at 19:[address] (left) Comminuted fracture of the left humeral head and neck consistent with a Neer 3 part fracture as described. These include impacted greater tuberosity fragments as well as fracture along the articular surface of the humeral head inferiorly. Mildly comminuted fracture of the inferior glenoid. 12-lead ECG Reviewed on consultation. Sinus, HR 90, QTc 460, no ischemic change. Assessment & Plan 71yoF with past history of tobacco dependence and undiagnosed COPD admitted for left total shoulder arthroplasty with subsequent admission to the CCU d/t concerns for extubation given history. Patient was extubated post admission and is doing well. Left total arthroplasty, acute -post op day 0 -patient is doing well at this time -recs and management as per ortho COPD exacerbation, acute, POA -patient is without formal diagnosis of COPD however had pulm function tests one year ago -no history of COPD exacerbations -was given prednisone burst during ED visit after GLF but developed worsening sputum production -albuterol-ipratropium q6HR, albuterol PRN -continue methylprednisone at this time -continue ceftriaxone Elevated glucose, acute, POA -no history of diabetes -hgbA1c pending Leukocytosis, acute, POA -acute stress rxn 2/2 surgery -continue abx as above for COPD exacerbation Elevated creatinine, unknown chronicity, POA -patient with unknown baseline but likely CKD given EMR review Patient is admitted under inpatient status and will likely require >2 midnight hospitalization due to severity of illness. Pain Evaluation: Adequate Pain Control GI Prophylaxis: Not indicated VTE Prophylaxis: Other (DVT prophylaxis as per orthopedic surgery) Resuscitation Status: CPR: Attempt Resuscitation Amanda Foy DO Oct 10, 2016 20:16
[2016-10-10 20:27] LABS: BASOPHILS % (AUTO) 0.2 % (0-3); EOSINOPHILS % (AUTO) 1.2 % (0-5); MONOCYTES % (AUTO) 6.6 % (4-12); Mean Corpuscular Hemoglobin 28.5 pg (27.0-35.0); NEUTROPHILS % (AUTO) 79.2 % (40-74); Platelet Count 298 bil/L (150-400)
[2016-10-10 20:30] VITALS: BP 145/86; PULSE 104; RESP 15; O2SAT 95
[2016-10-10] MEDS ORDERED: MethylprednisoLONE Sodium Succinate 40 mg/mL Inj IVPUSH SCH (20:30)
[2016-10-10] MEDS: Senna-Docusate 8.6-50 mg Tablet PO SCH (20:30)
[2016-10-10] MEDS ORDERED: Chlorhexidine 0.12% 15 mL Oral Solution MT SCH (20:30)
[2016-10-10] MEDS: Albuterol-Ipratropium 3 mL Inhalation Solution NEB SCH (20:35)
[2016-10-10 20:38] VITALS: PULSE 102; RESP 13; O2SAT 96
[2016-10-10] MEDS: Heparin 5,000 Unit/mL Inj SUBQ SCH (21:11)
[2016-10-10] MEDS ORDERED: CeFAZolin Inj 2 GM in IV Premix 1 EACH IV SCH (22:00)
--- NOTE | 2016-10-10 23:01 | CONS ---
[address] [address] CONSULTATION REPORT PATIENT: KIMBERLY RAMIREZ : 1945 MR#: [id number] ADMIT: 10/10/2016 JOB ID: [id number] DATE OF SERVICE: 10/10/2016 REQUESTING CLINICIAN: Nick Simental MD, Orthopedic Surgery. REASON FOR CONSULTATION: Postoperative respiratory failure. HISTORY OF PRESENT ILLNESS: The patient is a morbidly obese 71-year-old smoker with advanced COPD who sustained a ground level fall approximately one week ago at her home. She was seen in our emergency department where a comminuted angulated fracture of the left humeral neck was seen. She has been managed conservatively since that time and brought to the hospital electively today for surgical repair. She has arrived in the Critical Care Unit within the last 30 minutes, intubated following a rather lengthy surgery of approximately 2-1/2 hours length for the total shoulder arthroplasty that she ultimately required. Estimated blood loss was approximately 400 cc and total crystalloid delivered during the case was approximately 2 L. I do not have access to the full anesthesia records so I cannot see whether she received any bolus vasoactive agents, such as phenylephrine, during the case. Reportedly, she was rather easy to oxygenate and ventilate throughout the case. She has a history of advanced COPD with an FEV1 of less than 1 L. Baseline blood gases are not available. She had not been prescribed supplemental home O2 oxygen previously, but when seen in the emergency department following her fall she was felt to be in an acute exacerbation of her chronic lung disease and was started on a steroid burst. Antibiotics were not provided. She continued to use her p.r.n. albuterol/ipratropium metered-dose inhaler. No information is available from the patient herself who is currently intubated and sedated. No family members are present. Information is obtained by review of the record and discussion with her anesthesiologist, who was very kind to remain after the case and convey what he knew of her past and recent course. PAST MEDICAL HISTORY: 1. COPD. 2. Anxiety. 3. Morbid obesity. OUTPATIENT MEDICATIONS: Include: 1. Oxycodone/acetaminophen p.r.n. 2. Naprosyn p.r.n. 3. Bupropion ER 150 p.o. b.i.d. 4. Cholecalciferol 2000 units daily. 5. MVI daily. 6. Combivent Respimat q.i.d. and p.r.n. 7. Alprazolam 0.25 mg daily p.r.n. 8. Prednisone 20 mg p.o. daily, prescribed October 03, 2016. DRUG ALLERGIES: CODEINE causes gastrointestinal distress, nausea, vomiting. FAMILY HISTORY: Not obtainable as patient is intubated and sedated. SOCIAL HISTORY: Not obtainable as patient is intubated and sedated. REVIEW OF SYSTEMS: Not obtainable as patient is intubated and sedated. PHYSICAL EXAMINATION: This is a morbidly obese woman who is orally intubated on mechanical ventilation. Her blood pressure is 150/70. Her heart rate is 75 and regular. Respirations are 14 on a ventilator rate of 12 and her O2 saturation is 100% on FiO2 of 0.5 and 5 of PEEP. HEENT exam: Gaze appears conjugate. Conjunctivae noninjected. Sclerae anicteric. Pupils appear equal. Visible oral mucosa is moist. There is no obvious trauma, ulcerations or exudate. Trachea is midline to inspection and palpation. There is no crepitus, mass or adenopathy in the neck. The thyroid is nonpalpable. The chest shows symmetric expansion to inspection. The breasts are quite large. There is no crepitus in the chest wall. On auscultation she has decreased air movement in all lung coello with scattered rare coarse crackles. No wheezing is heard. Cardiac exam shows a regularly regular rhythm with normal S1 and S2. No murmur, gallop or rub is heard. PMI is nondisplaced. Extremities: She has a large dressing over left shoulder and left arm is in a fixation splint stabilized to the chest wall. Abdomen: Soft, nontender. Bowel tones are absent. There is no organomegaly, mass or bruit. Skin: She has a single peripheral IV in the right wrist. Neurologic: Patient is sedated. Unable to participate in exam. DATABASE: Per the electronic medical record. Her last available chest x-ray is dated October 03 and showed no acute cardiopulmonary disease. Laboratories from this admission are all pending currently. IMPRESSION: Postoperative respiratory failure. From the history it appears that she was having an acute exacerbation of her chronic obstructive pulmonary disease and then sustained a humeral fracture after a ground level fall. Surgery went well today, but in anticipation of some difficulty with liberation from ventilation she was brought to the Critical Care Unit without an attempt at extubation being made in the operating room or recovery areas. Once our assessment is completed in CCU and we have good pain control, we can try awakening and spontaneous breathing trial. The tracheal aspirate at this point looks quite purulent and has been sent for culture and we will start empiric antibiotics while continuing her inhaled bronchodilators and steroids, although the latter will need to be given parenterally at this point until she can take oral medications. In summary, this morbidly obese woman with advanced chronic lung disease has been admitted to the Critical Care Unit this evening following elective total shoulder following a ground level fall. She has had a recent exacerbation of her chronic lung disease, but on exam and by inspection of her ventilator waveforms does not appear to have significant bronchospasm at present and I am hopeful that we can extubate her within the next 24 hours. RECOMMEND/PLAN: 1. Solu-Medrol 40 IV q.12 h. 2. Scheduled and p.r.n. albuterol/ipratropium by small volume nebulizer. 3. Endotracheal aspirate for culture and empiric ceftriaxone 1 g IV daily 24. 4. Complete admission database with chemistries, CBC, EKG, chest x-ray and blood gas. 5. Routine Intensive Care Unit prophylaxis with parenteral H2 pete q.12 and subcutaneous heparin 5000 units q.12. 6. Continuous sedation with propofol and pain control with bolus and continuous infusion fentanyl. 7. Early awakening and spontaneous breathing trial once admission assessment complete and pain is controlled. Thank for requesting Pulmonary Critical Care consultation. We will continue to follow with you while she remains intubated in the postoperative period. EVIE
[2016-10-10] MEDS: HYDROmorphone 0.5 mg/0.5 mL iSecure Syringe IVPUSH PRN (23:42)
[2016-10-11] VITALS (9 sets, daily range): BP systolic 130–144; BP diastolic 54–84; PULSE 102–130; RESP 12–22; O2SAT 85–99
[2016-10-11] MEDS: Albuterol-Ipratropium 3 mL Inhalation Solution NEB SCH ×2 (02:44→09:57)
[2016-10-11] MEDS: HYDROmorphone 0.5 mg/0.5 mL iSecure Syringe IVPUSH PRN ×2 (03:11→06:50)
[2016-10-11 03:14] LABS: BASOPHILS % (AUTO) 0.1 % (0-3); EOSINOPHILS % (AUTO) 0 % (0-5); MONOCYTES % (AUTO) 1.4 % (4-12); Mean Corpuscular Hemoglobin 28.6 pg (27.0-35.0); Mean Corpuscular Volume 94.3 fL (81-100); Platelet Count 291 bil/L (150-400)
--- NOTE | 2016-10-11 05:37 | NUR ---
Pain/Resp: Pt on 3L/M per cannula with spo2 92-94%. Pt has required PRN pain medications. left arm remains in sling with total shoulder precautaions.
[2016-10-11] MEDS ORDERED: Bupivacaine Liposome 1.3% 20 mL Inj INFILTRATE ONE (06:00)
[2016-10-11] MEDS ORDERED: Hip/Knee Infiltration Cocktail IM ONE ×7 (06:00)
[2016-10-11] MEDS ORDERED: Famotidine Inj 20 MG in IV Premix 1 EACH IV SCH (08:30)
[2016-10-11] MEDS ORDERED: Famotidine Inj 50 ML IV SCH (08:30)
[2016-10-11] MEDS: Senna-Docusate 8.6-50 mg Tablet PO SCH (08:30)
[2016-10-11] MEDS: Heparin 5,000 Unit/mL Inj SUBQ SCH (08:30)
[2016-10-11] MEDS: oxyCODONE-Acetamin 5-325 mg Tablet PO PRN ×3 (09:05→13:29)
--- NOTE | 2016-10-11 09:59 | PCM.PNMED ---
Subjective Date of Service Oct 11, 2016 Subjective Alert. slept well, Denies SOB, nausea, pain cough productive as it was prior to admission No critical events over noc Exam Vital Signs Vital Sign - Last Date Time Temp Pulse Resp B/P Pulse Ox O2 Delivery O2 Flow Rate FiO2 10/11/16 04:30 Supplement Oxygen 10/11/16 04:30 37.2 107 12 130/54 94 3.00 10/10/16 17:45 40 Intake and Output 10/10/16 10/10/16 10/11/16 Cumulative From/Thru 15:00 23:00 07:00 10/09/16 09:25 - 10/11/16 05:18 Intake Total 760 ml 854 ml 1614 ml Output Total 50 ml 200 ml 650 ml 900 ml Balance 710 ml -200 ml 204 ml 714 ml Intake IV Total 760 ml 854 ml 1614 ml Output Urine Total 650 ml 650 ml Estimated Blood Loss 50 ml 200 ml 250 ml Exam Pale morbidly obese woman alert and comfortable wearing nasal cannula O2 SpO2 96% on 3L/min Afeb Lungs Decreased Breath sounds, NO wheezes, crackles CV RRR, II/ systolic m, no g/r Abd Soft, Normal BTs Lab and Diagnostics Result Diagram: 10/11/16 0251 10/11/16 0251 X-Rays, CTs and MRIs Patient Name: KIMBERLY RAMIREZ MR#: [id number] Location: CCU Ordering Phys: Alverto Chavis PA-C Date of Service: 10/10/16 1339 PROCEDURE: X-RAY LEFT SHOULDER, MINIMUM TWO VIEWS ([id number]) INDICATIONS: POST OPERATIVE TECHNIQUE: 2 views of the shoulder were acquired. COMPARISON: None. FINDINGS: Bones: Postsurgical changes compatible with left shoulder arthroplasty noted.. Soft tissues: No suspicious soft tissue calcifications. IMPRESSION: Status post left shoulder arthroplasty. Dictated by: Edie Campbell MD, PhD on 10/10/2016 at 19:11 Approved by: Edie Campbell MD, PhD on 10/10/2016 at 19:12 Patient Name: KIMBERLY RAMIREZ MR#: [id number] Location: CCU Ordering Phys: Pa Miller MD Date of Service: 10/10/16 1716 PROCEDURE: X-RAY CHEST ONE VIEW, PORTABLE ([id number]) INDICATIONS: Post intubation to verify ETT placement TECHNIQUE: One view of the chest was acquired. COMPARISON: None. FINDINGS: Surgical changes and devices: ET tube is approximately 4.9 cm superior to the rocio. NG tube crosses GE junction. Lungs and pleura: No pleural effusions or pneumothorax. Lungs are clear. Mediastinum: Mediastinal contours appear normal. Heart size is normal. Bones and chest wall: No suspicious bony lesions. Overlying soft tissues appear unremarkable. IMPRESSION: ET tube 4.9 cm superior to the rocio. Dictated by: Edie Campbell MD, PhD on 10/10/2016 at 19:10 Approved by: Edie Campbell MD, PhD on 10/10/2016 at 19:[address] (left) Comminuted fracture of the left humeral head and neck consistent with a Neer 3 part fracture as described. These include impacted greater tuberosity fragments as well as fracture along the articular surface of the humeral head inferiorly. Mildly comminuted fracture of the inferior glenoid. 12-lead ECG Reviewed on consultation. Sinus, HR 90, QTc 460, no ischemic change. Assessment & Plan 71 yo smoker with advanced COPD ( FEV1 - 0.84 ) POD 1 s/p Lt total shoulder for humeral neck fracture after GLF. Extubated last noc and doing well. Acute exacerbation of COPD. Patient is reluctant to use systemic steroids but open to a course of antibiotics. She does not need to remain in the hospital due to her chronic lung disease which can be managed as an outpatient. REC Mobilize / OOB / OT / Incentive spirometer Wean O2 as tolerates, Home O2 evaluation if SpO2 < 90% on RA. DC ceftriaxone, Begin PO Cefuroxime x 5 days, 250 PO BID DC IV solumedrol Albuterol / Ipratropium MDI which she already has at home F/U for COPD 1-2 weeks with her PCP Further care per her Ortho team GI Prophylaxis: Not indicated VTE Prophylaxis: Other (DVT prophylaxis as per orthopedic surgery) VTE Mechanical Devices: Intermittant Pneumatic CD Resuscitation Status: CPR: Attempt Resuscitation Pa Miller MD Oct 11, 2016 09:59
--- NOTE | 2016-10-11 10:20 | PCM.PNORTH ---
Subjective Date of Service: Oct 11, 2016 Visit Information: Reason for Visit Left Proximal Humerus Fracture Surgery/Surgery Date Post-Op Day # Date of Admission: Oct 10, 2016 at 16:51 Hospital Day # Subjective Status post day #1 left reverse total shoulder arthroplasty. Patient states she is doing well, states that her pain is well controlled. She feels like she can get up and move around and would definitely like to go home today. She has a lot of help from family members and would just like instructions to go home with. She states that she is okay with her breathing and is comfortable following up with the slunk skin curer on an outpatient basis. She spoke with Dr. Miller this morning and stated that she could take her inhaler, incentive spirometry at home, and follow-up on outpatient basis with himself and primary care provider. Postop General: No Complaints, No Shortness of Breath Objective Exam Objective Patient is alert and oriented 3. Sitting quite upright in the bed today and not in any acute distress. Patient able to wiggle fingers, patient wearing the sling appropriately. Capillary refill less than 3 seconds, radial pulses intact. Dressing is clean dry and intact. Labs as far as hemoglobin and hematocrit appear stable. Patient on very low flow oxygen nasal cannula. Vital Signs and I/O Vital Sign - Last Date Time Temp Pulse Resp B/P Pulse Ox O2 Delivery O2 Flow Rate FiO2 10/11/16 09:57 112 16 85 Room Air 0.21 10/11/16 04:30 37.2 130/54 10/10/16 17:45 40 Intake and Output 10/10/16 10/10/16 10/11/16 Cumulative From/Thru 15:00 23:00 07:00 10/09/16 09:25 - 10/11/16 05:18 Intake Total 760 ml 854 ml 1614 ml Output Total 50 ml 200 ml 650 ml 900 ml Balance 710 ml -200 ml 204 ml 714 ml Intake IV Total 760 ml 854 ml 1614 ml Output Urine Total 650 ml 650 ml Estimated Blood Loss 50 ml 200 ml 250 ml Lab & Micro Results Laboratory Tests Test 10/10/16 18:50 10/10/16 19:38 10/11/16 02:51 White Blood Count 10.7th/mm3 (3.8-10.1) 9.8th/mm3 (3.8-10.1) Red Blood Count 4.03mil/mm3 (3.90-5.20) 3.67mil/mm3 (3.90-5.20) Hemoglobin 11.5g/dL (12.0-15.6) 10.5g/dL (12.0-15.6) Hematocrit 37.9% (35.0-46.0) 34.6% (35.0-46.0) Mean Corpuscular Volume 94.0fL (81-100) 94.3fL (81-100) Mean Corpuscular Hemoglobin 28.5pg (27.0-35.0) 28.6pg (27.0-35.0) Mean Corpuscular Hemoglobin Concent 30.3% (32.0-37.0) 30.3% (32.0-37.0) Red Cell Distribution Width 14.5% (12.3-15.4) 14.3% (12.3-15.4) Platelet Count 298bil/L (150-400) 291bil/L (150-400) Neutrophils (%) (Auto) 79.2% (40-74) 90.0% (40-74) Lymphocytes (%) (Auto) 12.6% (14-46) 8.3% (14-46) Monocytes (%) (Auto) 6.6% (4-12) 1.4% (4-12) Eosinophils (%) (Auto) 1.2% (0-5) 0% (0-5) Basophils (%) (Auto) 0.2% (0-3) 0.1% (0-3) Sodium Level 138mEq/L (134-144) 138mEq/L (134-144) Potassium Level 5.1mEq/L (3.5-5.2) 5.2mEq/L (3.5-5.2) Chloride Level 97mEq/L (97-108) 100mEq/L (97-108) Carbon Dioxide Level 27mmol/L (18-29) 26mmol/L (18-29) Blood Urea Nitrogen 24mg/dL (8-27) 21mg/dL (8-27) Creatinine 1.18mg/dL (0.57-1.00) 1.01mg/dL (0.57-1.00) Estimat Glomerular Filtration Rate 65mL/min (>59) 77mL/min (>59) Glucose Level 130mg/dL (60-99) 160mg/dL (60-99) Calcium Level 9.5mg/dL (8.5-10.1) 9.0mg/dL (8.5-10.1) Triglycerides Level 151mg/dL (0-149) Urine Color Yellow (YELLOW) Urine Appearance Slightly cloudy Urine pH 5.0 (5.0-8.0) Urine Specific [place] 1.030 (1.003-1.035) Urine Protein Tracemg/dL (NEG,TRACE) Urine Glucose (UA) Negativemg/dL (NEGATIVE) Urine Ketones Negativemg/dL (NEGATIVE) Urine Occult Blood Negative (NEGATIVE) Urine Nitrite Negative (NEGATIVE) Urine Bilirubin Negative (NEGATIVE) Urine Urobilinogen Normalmg/dL (NORMAL) Urine Leukocyte Esterase Negative (NEGATIVE) Urine RBC 0-2/hpf (0-2) Urine WBC 0-5/hpf (0-5) Urine Epithelial Cells Moderate/hpf (NONE-MOD) Urine Crystals Amorphous urates (NONE Urine Bacteria Few/hpf (NONE-FEW) Urine Hyaline Casts Rare/lpf (NONE) Urine Granular Casts None seen (NONE SEEN) Urine Waxy Casts None seen (NONE SEEN) Urine Red Blood Cell Casts None seen (NONE SEEN) Urine White Blood Cell Casts None seen (NONE SEEN) Urine Mucus None seen (None Seen) Urine Trichomonas None seen (NONE SEEN) Urine Yeast None (NONE SEEN) Urinalysis Comment None Urine Culture Reflexed Not indicated Microbiology 10/10/16 MRSA (PCR) - Final, Complete Result Diagram: 10/11/16 0251 10/11/16 0251 Catheters: None Assessment & Plan Impression Status post day #1 left reverse total shoulder arthroplasty. Patient is using the restroom on her own, eating, working with physical therapy currently and should be cleared for home discharge. Patient's oxygen saturation went down to 85 on room air, will continue to monitor. She has a low baseline in the 80s due to her COPD, if it remains below 90 recommend home O2 consultation. Pharmacy Service Associate consulted and is okay with her being discharged home and patient understands that she will need to continue to monitor this, comfortable with doing so. Problems: Plan Patient will request physical therapy today to be cleared for home discharge. Left shoulder will remain nonweightbearing for 6 weeks. Patient will keep sling on at all times except for 3 times a day for gentle elbow and wrist motion. Patient not move her shoulder. No internal or external rotation, discussed with patient. Try to remain in sling and no lifting. Continue to ice and rest the shoulder for comfort. Patient will take aspirin 81 mg by mouth daily 2 weeks. Patient will be discharged with Percocet to take orally for pain control. Dressing should remain clean dry and intact for at least 3 days. Patient desires to shower she may remove this after day 3, no scrubbing or rubbing incision, gently pat dry and replace with bandage that was sent home with you. Keep this clean and dry until postoperative appointment. If patient continues to have oxygen saturation less than 90, will recommend and order home O2 evaluation. Patient will follow-up at 2 weeks at [facility] with Dr. Nick Simental as well as 6 weeks. Acute exacerbation of COPD: Recommendations per slunk skin curer: Mobilize / OOB / OT / Incentive spirometer Wean O2 as tolerates, Home O2 evaluation if SpO2 < 90% on RA. DC ceftriaxone, Begin PO Cefuroxime x 5 days, 250 PO BID DC IV solumedrol Albuterol / Ipratropium MDI which she already has at home F/U for COPD 1-2 weeks with her PCP Patient will be discharged to home today. VTE Prophylaxis: Other (DVT prophylaxis as per orthopedic surgery) Resuscitation Status: CPR: Attempt Resuscitation Alverto Chavis PA-C Oct 11, 2016 10:20
--- NOTE | 2016-10-11 10:45 | PCM.DIORTH ---
Ortho Discharge Instruction Date of Service: Oct 11, 2016 Dates of Hospitalization Date of Hospital Admission Oct 10, 2016 at 16:51 Providers Admitting Physician: Nick Simental MD Primary Care Physician: Lula Singh MD Attending Physician: Nick Simental MD Diet Discharge Diet: No restrictions Activity Discharge Activity-General: Try not to overdue Left Upper Extremity: Non-weight bearing Additional Instructions Discharge Instructions Patient will request physical therapy today to be cleared for home discharge. Left shoulder will remain nonweightbearing for 6 weeks. Patient will keep sling on at all times except for 3 times a day for gentle elbow and wrist motion. Patient not move her shoulder. No internal or external rotation, discussed with patient. Try to remain in sling and no lifting. Continue to ice and rest the shoulder for comfort. Patient will take aspirin 81 mg by mouth daily 2 weeks. Patient will be discharged with Percocet to take orally for pain control. Dressing should remain clean dry and intact for at least 3 days. Patient desires to shower she may remove this after day 3, no scrubbing or rubbing incision, gently pat dry and replace with bandage that was sent home with you. Keep this clean and dry until postoperative appointment. If patient continues to have oxygen saturation less than 90, will recommend and order home O2 evaluation. Patient will follow-up at 2 weeks at [facility] with Dr. Nick Simental as well as 6 weeks. Acute exacerbation of COPD: Recommendations per pressure vessel inspector: Mobilize / OOB / OT / Incentive spirometer Wean O2 as tolerates, Home O2 evaluation if SpO2 < 90% on RA. DC ceftriaxone, Begin PO Cefuroxime x 5 days, 250 PO BID DC IV solumedrol Albuterol / Ipratropium MDI which she already has at home F/U for COPD 1-2 weeks with her PCP Alverto Chavis PA-C Oct 11, 2016 10:45
--- NOTE | 2016-10-11 10:49 | PCM.DC.ORT ---
Discharge Summary Date of Service: Oct 11, 2016 Date of Hospital Admission: Oct 10, 2016 at 16:51 Date of Surgery: Oct 10, 2016 Date of Discharge: Oct 11, 2016 Reason for Hospitalization: Left shoulder proximal humerus fracture Procedures Performed: Left reverse total shoulder arthroplasty Hospital Course: Patient presented to [facility] surgical suite for the procedure of left reverse total shoulder arthroplasty by Dr Nick Simental on 10/10/2016. Patient was prepped for surgery and the procedure was performed successfully, patient was discharged to PACU under stable condition, tolerated the procedure well. Patient was admitted directly to CCU due to concerns from anesthesia for pulmonary and COPD concerns, patient was admitted to the hospital floor for observation, pain control, and progression with physical therapy as well as consultation from doll repairer. The first day the patient was able to resume a regular diet, void on their own, not having any problems with nausea or vomiting. The patient did not have any adverse falls, reactions, or events were all in the hospital. The patient began working with physical therapy on day one then progressed quite well with reasonable pain control. On day 1 the patient was able to ambulate safely on their own, and pain was controlled sufficiently to be discharged to on with home oxygen due to low saturation after surgery as recommended by doll repairer with a follow-up in 1-2 weeks with primary care provider for COPD. We will utilize aspirin 81 mg by mouth once daily for 2 weeks for DVT prophylaxis. The patient was discharged to home with home oxygen after respiratory therapy consultation under stable condition with plan to follow-up with patient at 2 weeks for a postoperative appointment. Diagnosis at Time of Discharge Status post left reverse total shoulder arthroplasty for left proximal humerus fracture. Acute exacerbation of COPD/pulmonary failure. Problems: Orthopedic Follow up Plan: In Two Weeks in my clinic Discharge Instructions: Patient will request physical therapy today to be cleared for home discharge. Left shoulder will remain nonweightbearing for 6 weeks. Patient will keep sling on at all times except for 3 times a day for gentle elbow and wrist motion. Patient not move her shoulder. No internal or external rotation, discussed with patient. Try to remain in sling and no lifting. Continue to ice and rest the shoulder for comfort. Patient will take aspirin 81 mg by mouth daily 2 weeks. Patient will be discharged with Percocet to take orally for pain control. Dressing should remain clean dry and intact for at least 3 days. Patient desires to shower she may remove this after day 3, no scrubbing or rubbing incision, gently pat dry and replace with bandage that was sent home with you. Keep this clean and dry until postoperative appointment. If patient continues to have oxygen saturation less than 90, will recommend and order home O2 evaluation. Patient will follow-up at 2 weeks at [facility] with Dr. Nick Simental as well as 6 weeks. Acute exacerbation of COPD: Recommendations per doll repairer: Mobilize / OOB / OT / Incentive spirometer Wean O2 as tolerates, Home O2 evaluation if SpO2 < 90% on RA. DC ceftriaxone, Begin PO Cefuroxime x 5 days, 250 PO BID DC IV solumedrol Albuterol / Ipratropium MDI which she already has at home F/U for COPD 1-2 weeks with her PCP Albuterol/Ipratropium (Combivent Respimat Inhal [place]) 120 Spr/4 Gm Inhaler 1 PUFF IH QID Bupropion ER (Wellbutrin SR) 150 Mg Tablet.er 150 MG PO BID Cholecalciferol (Vitamin D3) (Vitamin D3) 2,000 Unit Tablet 2,000 UNIT PO DAILY Multivitamin (Multi Vitamin Daily) 1 Each Tablet 1 EACH PO DAILY Naproxen (Naprosyn) 500 Mg Tablet 500 MG PO BID PRN PRN For Pain oxyCODONE-Acetaminophen 5-325 mg (oxyCODONE-Acetaminophen 5-325 mg) 1 Each Tablet 1-2 TAB PO Q6H PRN PRN For Pain Alverto Chavis PA-C Oct 11, 2016 10:49
--- NOTE | 2016-10-11 11:51 | NUR ---
Social Work: Initial Assessment/Discharge D: Per EMR review, pt is a 71 year old female admitted for Left Proximal Humerus Fracture. Pt is [facility] with Medicare; pt has no LTC insurance or VA benefits. PCP is Lula Singh MD. NOK is Shanta Haile, dtr, . Advanced directives information provided to pt by HIDE SALTER. No RA score entered at this time. Pt discussed in am rounds; pt is being discharged and was briefly intubated after surgery. Pt is medically stable for discharge. [facility] has no concerns about pt's discharge home except arranging for her home . Respiratory therapy consult has been ordered. HIDE SALTER confirmed with Respiratory that they have received this order and are arranging for through . HIDE SALTER met with pt and family at bedside. Sw role explained and contact info provided. See initial assessment. Pt lives at home with her family. She is I at baseline with ADLs, continues to drive and uses no DME. Pt has never had HH or skilled rehab. She denies that she is homebound status and states that she will complete therapy as ordered as an outpatient. Pt's family will transport the patient home. Family states pt will have 24/7 help if needed. Pt has been ambulating I and ambulating with PT in the halls. A: Pt who is I at baseline. P: Pt anticipated to discharge home via POV and no sw needs; Respiratory Therapy arranging for through . JOSE Negrete Addendum: 10/11/16 at 1156 by NOAH RODRIGUEZ Amended: Links added.
--- NOTE | 2016-10-11 12:30 | NUR ---
DISCHARGE Pt A&Ox3; reports that her q4hr pain pills are adequate to manage her post-op shoulder discomfort. Discharge documentation reviewed in detail w/ pt & her daughter; including prescriptions, teaching, Dr. follow-up appts and post-op care. Pt states she has good understanding of discharge instructions. All belongings with pt; escorted to waiting vehicle accompanied by extensive family.
--- NOTE | 2016-10-11 12:47 | PCM.PNMED ---
Subjective Date of Service Oct 11, 2016 Subjective Patient is doing well. No nausea. Minimal dyspnea. She is comfortable on oxygen for which qualify this morning. No nausea. No abdominal pain. Minimal cough which is chronic. No chest pain. Overnight events reviewed Exam Vital Signs Vital Sign - Last Date Time Temp Pulse Resp B/P Pulse Ox O2 Delivery O2 Flow Rate FiO2 10/11/16 11:00 128 Nasal Cannula 3.00 10/11/16 09:57 16 85 10/11/16 09:00 36.9 136/84 10/10/16 17:45 40 Intake and Output 10/10/16 10/10/16 10/11/16 Cumulative From/Thru 15:00 23:00 07:00 10/09/16 09:25 - 10/11/16 05:18 Intake Total 760 ml 854 ml 1614 ml Output Total 50 ml 200 ml 650 ml 900 ml Balance 710 ml -200 ml 204 ml 714 ml Intake IV Total 760 ml 854 ml 1614 ml Output Urine Total 650 ml 650 ml Estimated Blood Loss 50 ml 200 ml 250 ml Exam Alert and oriented -3, no distress. Fluent speech, oxygen in place. Minimal dyspnea with talking. Anicteric sclera. Lungs are clear with normal rate and effort, 2 out of 4 breath sounds Heart is regular without murmur gallop or rub Abdomen soft nontender, flat Extremities are free of edema. Skin is free of rash or lesions. IVs and Medications Medications Reviewed: Medications were reviewed in detail Lab and Diagnostics Result Diagram: 10/11/16 0251 10/11/16 0251 X-Rays, CTs and MRIs Patient Name: KIMBERLY RAMIREZ MR#: [id number] Location: CCU Ordering Phys: Alverto Chavis PA-C Date of Service: 10/10/16 1339 PROCEDURE: X-RAY LEFT SHOULDER, MINIMUM TWO VIEWS ([id number]) INDICATIONS: POST OPERATIVE TECHNIQUE: 2 views of the shoulder were acquired. COMPARISON: None. FINDINGS: Bones: Postsurgical changes compatible with left shoulder arthroplasty noted.. Soft tissues: No suspicious soft tissue calcifications. IMPRESSION: Status post left shoulder arthroplasty. Dictated by: Edie Campbell MD, PhD on 10/10/2016 at 19:11 Approved by: Edie Campbell MD, PhD on 10/10/2016 at 19:12 Patient Name: KIMBERLY RAMIREZ MR#: [id number] Location: CCU Ordering Phys: Pa Miller MD Date of Service: 10/10/16 0945 PROCEDURE: X-RAY CHEST ONE VIEW, PORTABLE ([id number]) INDICATIONS: Post intubation to verify ETT placement TECHNIQUE: One view of the chest was acquired. COMPARISON: None. FINDINGS: Surgical changes and devices: ET tube is approximately 4.9 cm superior to the rocio. NG tube crosses GE junction. Lungs and pleura: No pleural effusions or pneumothorax. Lungs are clear. Mediastinum: Mediastinal contours appear normal. Heart size is normal. Bones and chest wall: No suspicious bony lesions. Overlying soft tissues appear unremarkable. IMPRESSION: ET tube 4.9 cm superior to the rocio. Dictated by: Edie Campbell MD, PhD on 10/10/2016 at 19:10 Approved by: Edie Campbell MD, PhD on 10/10/2016 at 19:[address] (left) Comminuted fracture of the left humeral head and neck consistent with a Neer 3 part fracture as described. These include impacted greater tuberosity fragments as well as fracture along the articular surface of the humeral head inferiorly. Mildly comminuted fracture of the inferior glenoid. 12-lead ECG Reviewed on consultation. Sinus, HR 90, QTc 460, no ischemic change. Assessment & Plan 71 yo smoker with advanced COPD ( FEV1 - 0.84 ) #. POD 1 s/p Lt total shoulder for humeral neck fracture after GLF. Extubated last noc and doing well. IV will be removed prior to discharge and she has ambulated with physical therapy well. #, Acute exacerbation of COPD. Patient is reluctant to use systemic steroids but open to a course of antibiotics. She does not need to remain in the hospital due to her chronic lung disease which can be managed as an outpatient. #. Acute respiratory failure with hypoxia, likely POA. The patient has done well on oxygen and is comfortable taking this on with her until follow-up. She will then 2 L nasal cannula continuous. The patient was seen by pulmonary next visit last night. I will sign off on her home oxygen paperwork. She uses Combivent 4 times a day and declines prednisone from the pulmonary doctor today. She is open to close follow-up. GI Prophylaxis: Not indicated VTE Prophylaxis: Other (DVT prophylaxis as per orthopedic surgery) VTE Mechanical Devices: Intermittant Pneumatic CD Resuscitation Status: CPR: Attempt Resuscitation Cheng Dewitt MD Oct 11, 2016 12:47
[2016-10-11] MEDS ORDERED: CEFU250T82 PO (13:17)
== END 2016-10-11 13:35 | disposition home or self-care (01) | DRG 483 ==
LOC: SAS 12:22 → CCU 16:51
PROVIDERS: ADMIT Orthopaedic Surgery; ATTEND Internal Medicine
PROC: 4A033B1 Measurement of Arterial Pressure, Peripheral, Percutaneous Approach (ICD-10-PCS; 2016-10-10)
PROC: 0RRK00Z Replacement of Left Shoulder Joint with Reverse Ball and Socket Synthetic Substitute, Open Approach (ICD-10-PCS; principal; 2016-10-10 13:45)
DX: S42.292A Other displaced fracture of upper end of left humerus, initial encounter for closed fracture (principal); J96.01 Acute respiratory failure with hypoxia; J44.1 Chronic obstructive pulmonary disease with (acute) exacerbation; Z68.41 Body mass index [BMI] 40.0-44.9, adult; E66.01 Morbid (severe) obesity due to excess calories; F17.210 Nicotine dependence, cigarettes, uncomplicated; E78.5 Hyperlipidemia, unspecified; W10.2XXA Fall (on)(from) incline, initial encounter; Y93.89 Activity, other specified; Y92.008 Other place in unspecified non-institutional (private) residence as the place of occurrence of the external cause